=== PATIENT | female | born 1965 | race African-American/Black ===

== ENCOUNTER 2022-06-06 12:53 | Inpatient (IN) | payer OTHER ==
[~2022-06-06] VITALS: Ht 170.2 cm; Wt 72.2 kg
[2022-06-06] MEDS ORDERED: LevETIRAcetam 1,000 MG in DEXTROSE 5%-WATER 100 ML IV ONE (13:00)
[2022-06-06] MEDS ORDERED: ACETAMINOPHEN 500 MG TABLET PO ONE (13:15)
[2022-06-06] MEDS ORDERED: FAMOTIDINE 10 MG/ML 2 ML VIAL IVP ONE (13:15)
[2022-06-06 13:54] LABS: BASOPHILS % (AUTO) 0.7 % (0.0-2.0); EOSINOPHILS % (AUTO) 2.5 % (1.0-6.0); HEMATOCRIT 38.9 % (36-46); HEMOGLOBIN 12.6 g/dL (12.0-16.0); MEAN CORPUSCULAR HEMOGLOBIN 30.4 pg (26.0-34.0); MEAN CORPUSCULAR HGB CONC 32.4 G/dL (31.0-37.0); MEAN CORPUSCULAR VOLUME 94 fL (80-100); MONOCYTES # (AUTO) 0.3 K/uL (0.1-1.0); MONOCYTES % (AUTO) 6.3 % (2.0-9.0); NEUTROPHILS # (AUTO) 2.9 K/uL (1.8-7.7); NEUTROPHILS % (AUTO) 53.5 % (40.0-70.0); PLATELET COUNT (AUTO) 244 K/uL (150-450); RED BLOOD CELL COUNT(AUTO) 4.15 MIL/uL (4.00-5.20); RED CELL DISTRIBUTION WIDTH 13.8 % (11.5-14.5)
[2022-06-06 13:57] LABS: ANION GAP 12 mmol/L (8-16); CALCIUM, TOTAL 8.8 mg/dL (8.8-10.5); CARBON DIOXIDE 25 mmol/L (22-29); CHLORIDE 103 mmol/L (98-107); CREATININE 0.86 mg/dL (0.60-1.30); GLUCOSE,RANDOM 119 mg/dL (70-110); POTASSIUM 4.1 mmol/L (3.5-5.1); SODIUM SERUM 140 mmol/L (136-145); UREA NITROGEN, BLOOD 17 mg/dL (7-18)
[2022-06-06 14:03] LABS: GLOMERULAR FILTR. RATE CALC > 60 mL/min (>60)
[2022-06-06 14:13] LABS: PROTHROMBIN TIME 10.3 SEC (9.4-11.6)
[2022-06-06] MEDS ORDERED: ASPIRIN 325 MG TABLET PO ONE (14:15)
[2022-06-06 14:18] LABS: B-TYPE NATRIURETIC PEPTIDE 15 pg/mL (0-100)
[2022-06-06 14:24] LABS: ALANINE AMINOTRANSFERASE 24 U/L (12-78); ALBUMIN 3.8 g/dL (3.4-5.0); ALKALINE PHOSPHATASE 74 U/L (46-116); ASPARTATE AMINOTRANSFERASE 16 U/L (15-37); BILIRUBIN,TOTAL 0.3 mg/dL (0.1-1.0); CREATINE KINASE, TOTAL ONLY 193 U/L (26-192); HCG,QUANTITATIVE 1 mIU/mL (0-6); TOTAL PROTEIN, SERUM 7.8 g/dL (6.4-8.2)
[2022-06-06] MEDS ORDERED: ACETAMINOPHEN 325 MG TABLET PO PRN (15:00)
[2022-06-06] MEDS ORDERED: ONDANSETRON HCL 4 MG/2 ML VIAL IVP PRN (15:00)
[2022-06-06] MEDS ORDERED: 0.9% SODIUM CHLORIDE 10 ML SYRINGE IVP PRN ×2 (15:00→16:15)
[2022-06-06 15:12] LABS: COVID AG,FIA SOURCE NASOPHARYNGEAL
[2022-06-06 15:39] LABS: APPEARANCE,URINE CLEAR (CLEAR); BILIRUBIN,URINE NEGATIVE (NEGATIVE); GLUCOSE, URINE (UA) NEGATIVE (NEGATIVE); KETONES,URINE NEGATIVE (NEGATIVE); LEUKOCYTE ESTERASE ,URINE NEGATIVE (NEGATIVE); NITRATE,URINE NEGATIVE (NEGATIVE); OCCULT BLOOD,URINE NEGATIVE (NEGATIVE); PH,URINE 5.5 (5.0-8.0); PROTEIN,URINE NEGATIVE (NEGATIVE); SPECIFIC GRAVITIY, URINE 1.016 (1.003-1.030); UROBILINOGEN,URINE <=1.0 mg/dL (<=1.0)
[2022-06-06 15:46] LABS: AMPHET/METH SCREEN,URINE NEGATIVE (NEGATIVE); BARBITURATE SCREEN, URINE NEGATIVE (NEGATIVE); BENZODIAZEPINES SCREEN,URINE NEGATIVE (NEGATIVE); CANNABINOID SCREEN,URINE POSITIVE (NEGATIVE); COCAINE SCREEN,URINE POSITIVE (NEGATIVE); METHADONE SCREEN, URINE NEGATIVE (NEGATIVE); OPIATE SCREEN,URINE NEGATIVE (NEGATIVE)
[2022-06-06 15:47] LABS: PHENCYCLIDINE SCREEN,URINE NEGATIVE (NEGATIVE)
[2022-06-06 16:04] VITALS: BP 158/101
[2022-06-06] MEDS ORDERED: DOCUSATE SODIUM 100 MG/10 ML LIQUID UDCUP PO PRN (16:15)
[2022-06-06 16:43] LABS: FREE T4 (FREE THYROXINE) 0.86 ng/dL (0.76-1.46); THYROID STIMULATING HORMONE 1.56 uIU/mL (0.36-3.74)
[2022-06-06] MEDS ORDERED: DOCUSATE SODIUM 100 MG CAPSULE PO PRN (17:00)
[2022-06-06] MEDS: ACETAMINOPHEN 325 MG TABLET PO PRN (18:13)
[2022-06-06 19:32] VITALS: BP 138/91
[2022-06-06] MEDS: MELATONIN 5 MG TABLET PO PRN (20:45)
[2022-06-07 00:03] VITALS: BP 143/98
[2022-06-07] MEDS: HEPARIN SODIUM,PORCINE 5,000 UNITS/ML VIAL SQ SCH ×4 (00:05→23:33)
[2022-06-07 04:46] VITALS: BP 156/85
[2022-06-07 06:17] LABS: BASOPHILS % (AUTO) 0.7 % (0.0-2.0); EOSINOPHILS % (AUTO) 4.2 % (1.0-6.0); HEMATOCRIT 39.2 % (36-46); HEMOGLOBIN 12.8 g/dL (12.0-16.0); LYMPHOCYTES # (AUTO) 2.8 K/uL (1.0-4.8); LYMPHOCYTES % (AUTO) 45.9 % (22.0-44.0); MEAN CORPUSCULAR HEMOGLOBIN 30.4 pg (26.0-34.0); MEAN CORPUSCULAR HGB CONC 32.6 G/dL (31.0-37.0); MEAN CORPUSCULAR VOLUME 93 fL (80-100); MONOCYTES # (AUTO) 0.4 K/uL (0.1-1.0); MONOCYTES % (AUTO) 6.1 % (2.0-9.0); NEUTROPHILS # (AUTO) 2.6 K/uL (1.8-7.7); NEUTROPHILS % (AUTO) 43.1 % (40.0-70.0); PLATELET COUNT (AUTO) 261 K/uL (150-450); RED CELL DISTRIBUTION WIDTH 13.9 % (11.5-14.5)
[2022-06-07 06:41] LABS: ALANINE AMINOTRANSFERASE 24 U/L (12-78); ALBUMIN 4.2 g/dL (3.4-5.0); ALKALINE PHOSPHATASE 80 U/L (46-116); ANION GAP 11 mmol/L (8-16); ASPARTATE AMINOTRANSFERASE 13 U/L (15-37); BILIRUBIN,TOTAL 0.8 mg/dL (0.1-1.0); CALCIUM, TOTAL 9.3 mg/dL (8.8-10.5); CARBON DIOXIDE 26 mmol/L (22-29); CHLORIDE 103 mmol/L (98-107); CHOL/HDL RATIO 2.4 (3.9-5.7); CHOLESTEROL 198 mg/dL (131-200); CREATININE 0.89 mg/dL (0.60-1.30); GLUCOSE,RANDOM 120 mg/dL (70-110); HDL CHOLESTEROL 82 mg/dL (40-60); LDL CHOL (CALC.) 84 mg/dL (0-130); POTASSIUM 4.1 mmol/L (3.5-5.1); SODIUM SERUM 140 mmol/L (136-145); TOTAL PROTEIN, SERUM 8.6 g/dL (6.4-8.2); TRIGLYCERIDES 160 mg/dL (15-150); UREA NITROGEN, BLOOD 20 mg/dL (7-18)
[2022-06-07 06:48] LABS: GLOMERULAR FILTR. RATE CALC > 60 mL/min (>60)
[2022-06-07 07:37] VITALS: BP 149/103
[2022-06-07] MEDS: ASPIRIN 81 MG CHEWABLE TABLET PO SCH (07:58)
[2022-06-07] MEDS ORDERED: LISINOPRIL 5 MG TABLET PO SCH (09:00)
[2022-06-07 11:44] VITALS: BP_SYST 131; BP_SYST 149; BP_SYST 151; BP_DIAS 104; BP_DIAS 105; BP_DIAS 94
[2022-06-07] MEDS: METOPROLOL SUCCINATE 50 MG ER TABLET PO SCH (14:40)
[2022-06-07 15:35] VITALS: BP 142/83
[2022-06-07] MEDS: GuaiFENesin/CODEINE [SUGAR FREE] 200-20MG/10 ML SYRUP UDCUP PO PRN (18:19)
[2022-06-07 19:23] VITALS: BP 138/86
[2022-06-07] MEDS: MELATONIN 5 MG TABLET PO PRN (21:02)
[2022-06-08 00:20] VITALS: BP 147/100
[2022-06-08] MEDS: GuaiFENesin/CODEINE [SUGAR FREE] 200-20MG/10 ML SYRUP UDCUP PO PRN ×3 (00:38→23:40)
[2022-06-08 06:29] LABS: BASOPHILS % (AUTO) 0.6 % (0.0-2.0); EOSINOPHILS % (AUTO) 2.9 % (1.0-6.0); HEMATOCRIT 39.5 % (36-46); HEMOGLOBIN 12.9 g/dL (12.0-16.0); LYMPHOCYTES # (AUTO) 2.6 K/uL (1.0-4.8); LYMPHOCYTES % (AUTO) 44.3 % (22.0-44.0); MEAN CORPUSCULAR HEMOGLOBIN 30.1 pg (26.0-34.0); MEAN CORPUSCULAR HGB CONC 32.6 G/dL (31.0-37.0); MEAN CORPUSCULAR VOLUME 93 fL (80-100); MONOCYTES # (AUTO) 0.3 K/uL (0.1-1.0); MONOCYTES % (AUTO) 5.9 % (2.0-9.0); NEUTROPHILS # (AUTO) 2.7 K/uL (1.8-7.7); NEUTROPHILS % (AUTO) 46.3 % (40.0-70.0); PLATELET COUNT (AUTO) 216 K/uL (150-450); RED BLOOD CELL COUNT(AUTO) 4.27 MIL/uL (4.00-5.20); RED CELL DISTRIBUTION WIDTH 13.8 % (11.5-14.5)
[2022-06-08 06:46] LABS: ANION GAP 4 mmol/L (8-16); CALCIUM, TOTAL 8.8 mg/dL (8.8-10.5); CARBON DIOXIDE 29 mmol/L (22-29); CHLORIDE 104 mmol/L (98-107); CREATININE 0.82 mg/dL (0.60-1.30); GLUCOSE,RANDOM 113 mg/dL (70-110); POTASSIUM 4.2 mmol/L (3.5-5.1); SODIUM SERUM 137 mmol/L (136-145); UREA NITROGEN, BLOOD 20 mg/dL (7-18)
[2022-06-08 06:48] LABS: GLOMERULAR FILTR. RATE CALC > 60 mL/min (>60)
[2022-06-08 07:20] VITALS: BP 145/103
[2022-06-08] MEDS: ASPIRIN 81 MG CHEWABLE TABLET PO SCH (09:09)
[2022-06-08] MEDS: ACETAMINOPHEN 325 MG TABLET PO PRN (09:10)
[2022-06-08] MEDS: HEPARIN SODIUM,PORCINE 5,000 UNITS/ML VIAL SQ SCH ×3 (09:11→23:40)
[2022-06-08] MEDS: METOPROLOL SUCCINATE 50 MG ER TABLET PO SCH (09:11)
[2022-06-08] MEDS: LISINOPRIL 20 MG TABLET PO SCH (09:12)
[2022-06-08 11:00] VITALS: BP 142/105
[2022-06-08] MEDS: HydrALAZINE HCL 25 MG TABLET PO SCH ×2 (12:52→20:17)
[2022-06-08 15:11] VITALS: BP 135/78
[2022-06-08] MEDS: AmLODIPine BESYLATE 5 MG TABLET PO SCH ×2 (16:07→20:17)
[2022-06-08] MEDS: CloNIDine HCL 0.1 MG TABLET PO SCH ×2 (16:08→20:17)
[2022-06-08 20:04] VITALS: BP 112/70
[2022-06-08] MEDS: MELATONIN 5 MG TABLET PO PRN (20:17)
[2022-06-09 00:08] VITALS: BP 138/86
[2022-06-09 05:27] VITALS: BP 130/85
[2022-06-09 07:11] VITALS: BP 131/87
[2022-06-09] MEDS: HydrALAZINE HCL 25 MG TABLET PO SCH (08:54)
[2022-06-09] MEDS: ASPIRIN 81 MG CHEWABLE TABLET PO SCH (08:55)
[2022-06-09] MEDS: AmLODIPine BESYLATE 5 MG TABLET PO SCH (08:55)
[2022-06-09] MEDS: METOPROLOL SUCCINATE 50 MG ER TABLET PO SCH (08:55)
[2022-06-09] MEDS: LISINOPRIL 20 MG TABLET PO SCH (08:55)
[2022-06-09] MEDS: CloNIDine HCL 0.1 MG TABLET PO SCH (08:55)
[2022-06-09] MEDS: HEPARIN SODIUM,PORCINE 5,000 UNITS/ML VIAL SQ SCH ×2 (08:58→16:00)
[2022-06-09 10:50] VITALS: BP 131/87
[2022-06-09 11:17] VITALS: BP 114/76
[2022-06-09] MEDS: GuaiFENesin/CODEINE [SUGAR FREE] 200-20MG/10 ML SYRUP UDCUP PO PRN (12:40)
[2022-06-09 15:15] VITALS: BP 118/76
[2022-06-09] MEDS ORDERED: AMLO-257 PO (15:29)
[2022-06-09] MEDS ORDERED: CLON-441 PO (15:30)
[2022-06-09] MEDS ORDERED: HYDR25TA84 PO (15:31)
[2022-06-09] MEDS ORDERED: LISI-663 PO (15:32)
[2022-06-09] MEDS ORDERED: METO50TA9 PO (15:32)
[2022-06-09] MEDS ORDERED: ASPI81TA87 PO (15:33)
== END 2022-06-09 16:20 | disposition home or self-care (01) | DRG 198 ==
LOC: EDBD 12:55 → EMS 12:55 → 5S 14:51
PROVIDERS: ADMIT Internal Medicine; ATTEND Internal Medicine
DX: I20.0 Unstable angina (principal); G92.9 Unspecified toxic encephalopathy; I11.9 Hypertensive heart disease without heart failure; F14.90 Cocaine use, unspecified, uncomplicated; R55 Syncope and collapse; F41.9 Anxiety disorder, unspecified; R77.8 Other specified abnormalities of plasma proteins; Z20.822 Contact with and (suspected) exposure to COVID-19; Z88.8 Allergy status to other drugs, medicaments and biological substances; Z79.899 Other long term (current) drug therapy; Z87.891 Personal history of nicotine dependence
CPT/HCPCS: 70450; 71045; 80048; 80053; 80061; 80307; 81003; 82550; 83735; 83880; 84439; 84443; 84484; 84702; 85025; 85610; 85730; 93005; 93306; 93880; 99291; G0480; J0712; J1644; J3490; J7060; Q9967; 36415-L1; 36415-TC